=== PATIENT | female | born 1925 | race Caucasian/White ===

== ENCOUNTER 2016-08-07 17:26 | Emergency (ER) | payer OTHER, MEDICARE ==
[~2016-08-07] VITALS: Ht 152.4 cm; Wt 70.0 kg
[~2016-08-07 17:26] MED LIST: AMLODIPINE BESYL5 MG PO; ASPIRIN CHEWABL81 M2 PO; ASPIRIN81 M2 PO; BENADRYL25 MG PO; BENICAR20 MG PO; BENICAR40 MG PO; Bystolic PO; CALCIUM 500 MG1 EAC1 PO; CALTRATE 6001 TABLE1 PO; CELECOXIB200 MG PO; COUMADIN1 MG PO; Cipro PO; Flagyl PO; K-DUR20 MEQ PO; Levothroid,Synthroid PO; Norvasc PO; PRAVASTATIN SOD20 MG PO; SENNA-TIME S T1 EACH PO; SYNTHROID75 MCG PO; TRADJENTA5 MG PO; TRAMADOL HCL50 MG PO; VALSARTAN-HCTZ1 EAC3 PO
[2016-08-07] MEDS ORDERED: KEFLEX250 MG PO (21:22)
[2016-08-07 22:00] VITALS: BP 133/60
== END 2016-08-07 22:01 | disposition home or self-care (01) ==
LOC: EME 17:26
DX: S00.83XA Contusion of other part of head, initial encounter (principal); M25.551 Pain in right hip; W01.0XXA Fall on same level from slipping, tripping and stumbling without subsequent striking against object, initial encounter; Y93.01 Activity, walking, marching and hiking; E11.9 Type 2 diabetes mellitus without complications; I10 Essential (primary) hypertension; K21.9 Gastro-esophageal reflux disease without esophagitis; Z79.82 Long term (current) use of aspirin
CPT/HCPCS: 70450; 70486; 73502; 99281; 99284